=== PATIENT | male | born 1980 | race Caucasian/White ===

== ENCOUNTER 2022-09-06 14:59 | Emergency (ER) | payer BC, OTHER ==
[2022-09-06] MEDS ORDERED: Bacitracin Oint 1 GM U/D Packet TOP ONE (15:20)
[2022-09-06] MEDS ORDERED: Diphtheria,Pertussis(Acell),Tetanus Vaccine 0.5 ML Syringe IM ONE (15:20)
== END 2022-09-06 16:33 | disposition home or self-care (01) ==
LOC: MW.ED 14:59
DX: S06.0XAA Concussion with loss of consciousness status unknown, initial encounter (principal); S02.2XXA Fracture of nasal bones, initial encounter for closed fracture; Z23 Encounter for immunization; W01.10XA Fall on same level from slipping, tripping and stumbling with subsequent striking against unspecified object, initial encounter
CPT/HCPCS: 70450; 70450-26; 70486; 70486-26; 72125; 72125-26; 90471; 90715; 93005; 93010; 99283; 99284-25

== ENCOUNTER 2024-10-03 18:49 | Emergency (ER) | payer OTHER ==
[2024-10-03 19:08] LABS: BASOPHILS ABSOLUTE AUTO 0.03 K/uL (0.00-0.20); BASOPHILS PERCENT AUTO 0.3 % (0.0-1.0); EOSINOPHILS PERCENT AUTO 1.1 % (0.0-6.0); HEMATOCRIT 43.9 % (42.0-52.0); HEMOGLOBIN 15.1 g/dL (14.0-18.0); IMMATURE GRAN ABSOLUTE AUTO 0.03 K/uL (0.00-0.05); IMMATURE GRAN PERCENT AUTO 0.3 % (0.0-0.4); LYMPHOCYTES ABSOLUTE AUTO 3.24 K/uL (1.00-4.80); LYMPHOCYTES PERCENT AUTO 36.4 % (24.0-44.0); MEAN CORPUSCULAR HEMOGLOBIN 31.5 pg (28.0-32.0); MEAN CORPUSCULAR HGB CONC 34.4 g/dL (32.0-36.0); MEAN CORPUSCULAR VOLUME 91.5 fL (83.0-99.0); MEAN PLATELET VOLUME 9.5 fL (9.4-12.4); MONOCYTES ABSOLUTE AUTO 0.87 K/uL (0.00-0.80); MONOCYTES PERCENT AUTO 9.8 % (0.0-8.0); NEUTROPHILS ABSOLUTE AUTO 4.62 K/uL (1.80-7.70); NEUTROPHILS PERCENT AUTO 52.1 % (41.0-71.0); PLATELET COUNT,PLT 336 K/uL (150-400); WHITE BLOOD CELL COUNT,WBC 8.89 K/uL (3.9-11.3)
[2024-10-03] MEDS: Ketorolac 30 MG/ML SDV IVPUSH ONE (19:17)
[2024-10-03] MEDS: Sodium Chloride 0.9% 2.5 ML Syringe FLUSH PRN (19:17)
[2024-10-03] MEDS: Sodium Chloride 0.9% 10 ML Syringe FLUSH PRN (19:17)
[2024-10-03] MEDS: Sodium Chloride 0.9% 1,000 ML IV ONE (19:17)
[2024-10-03] MEDS: Albuterol 0.083% 2.5 MG/3 ML Neb Soln NEB ONE (19:17)
[2024-10-03 19:36] LABS: ALANINE AMINOTRANSFERASE,ALT 28 IU/L (14-63); ALKALINE PHOSPHATASE 95 U/L (46-116); ASPARTATE AMNIOTRANSFERASE,AST 14 IU/L (15-37); BILIRUBIN TOTAL 0.4 mg/dL (0.2-1.0); BLOOD UREA NITROGEN,BUN 8 mg/dL (7.0-18.0); CALCIUM 8.7 mg/dL (8.5-10.1); CARBON DIOXIDE,CO2 24.7 mmol/L (21.0-32.0); CHLORIDE,CL 101 mmol/L (98-107); GLUCOSE RANDOM 84 mg/dL (74-106); POTASSIUM,K 3.6 mmol/L (3.5-5.1); PROTEIN TOTAL,TP 7.9 g/dL (6.4-8.2); SODIUM,NA 139 mmol/L (136-148)
[2024-10-03 19:37] LABS: ESTIMATED GFR 96 mL/min (>60)
== END 2024-10-03 22:16 | disposition home or self-care (01) ==
LOC: MW.ED 18:49
DX: R07.9 Chest pain, unspecified (principal); Z77.098 Contact with and (suspected) exposure to other hazardous, chiefly nonmedicinal, chemicals; Z90.49 Acquired absence of other specified parts of digestive tract; Z75.8 Other problems related to medical facilities and other health care
CPT/HCPCS: 36415; 71045; 80053; 84484; 85025; 93005; 96374; 99285; J1885; J7030; 93010; 99283; J7620-GY